=== PATIENT | male | born 1985 | race Caucasian/White ===

== ENCOUNTER 2021-07-01 08:27 | Outpatient (CLI) | payer MEDICAID, SELFPAY ==
--- NOTE | 2021-07-01 08:51 | MR_ITS ---
WS: [id number] MRI LUMBAR SPINE NONCONTRAST TECHNIQUE: Sagittal T1, T2 and STIR imaging. Axial T1 and T2 imaging. CLINICAL INFORMATION: LUMBAR DDD COMPARISON: November 2015 FINDINGS: Mild lumbar curve. No acute compression. No high-grade canal stenosis. Mild disc bulging L4-L5 and L5 -S1. Tiny annular fissure at L4-5. L1-L2: Normal. L2-L3: Minimal annular bulging. Mild facet arthropathy. Spinal canal and foramen are patent. L3-L4: Minimal annular bulging. Mild facet arthropathy. Spinal canal and foramen are patent. L4-L5: Mild annular bulging. Tiny annular fissure. Slight effacement of ventral thecal sac. Slight im pingement on the traversing right L5 nerve root. Mild right foraminal narrowing. L5-S1: Mild annular bulging with slight effacement of ventral thecal sac. Mild facet arthropathy. Mil d left L5-S1 foraminal narrowing. Right foramen is patent. Shallow disc protrusions in the cervical spine at C5-C6 C6-C7 and C7-T1. Slight contact of the cervic al cord at C6-C7. Small disc protrusions in the lower thoracic spine more prominent at T7-T8 eccentric to the left. MR/MR lumbar spine wo con* [id number] IMPRESSION: 1. Mild lumbar curve. No acute compression. No high-grade central canal stenos is. 2. Annular bulging L4-5 with a small annular fissure. Slight impingement trave rsing right L5 nerve root in the subarticular recess. Mild right L4-5 foraminal narrowing. 3. Annular bulge L5-S1 with mild left L5-S1 foraminal narrowing. 4. Mild facet arthropathy L3-L4 and L4-L5. 5. Shallow disc protrusions in the cervical spine with slight contact of the c ervical cord at C6-C7.
== END 2021-07-01 08:28 | disposition home or self-care (01) ==
PROVIDERS: Visit Provider General Practice
DX: M51.36 Other intervertebral disc degeneration, lumbar region (principal); M47.816 Spondylosis without myelopathy or radiculopathy, lumbar region; M50.223 Other cervical disc displacement at C6-C7 level; M51.27 Other intervertebral disc displacement, lumbosacral region
CPT/HCPCS: 72148